=== PATIENT | female | born 2000 | race Caucasian/White ===

== ENCOUNTER 2025-03-10 09:38 | Outpatient (CLI) | payer BC, MEDICAID, SELFPAY ==
--- NOTE | 2025-03-10 09:47 | CTR_ITS ---
PROCEDURE INFORMATION: Exam: CT Temporal Bones Without Contrast. Exam date and time: 03/10/2025 10:24 AM Age: 25 years old Clinical indication: Hearing loss; RT ear mass x 1 month ago. Difficulty hearing and drainage; Additional info: Otorrhea, right/mass TECHNIQUE: Imaging protocol: Computed tomography of the temporal bones without contrast. Radiation optimization: All CT scans at this facility use at least one of these dose optimization techniques: automated exposure control; mA and/or kV adjustment per patient size (includes targeted exams where dose is matched to clinical indication); or iterative reconstruction. COMPARISON: No relevant prior studies available. RADIATION DOSE METRICS: Total DLP (mGy-cm): 381.99 FINDINGS: RIGHT TEMPORAL BONE: Smooth crescentic soft tissue within the deep portion of the external auditory canal, lateral to and abutting the posterior margin of the tympanic membrane, is nonspecific but could relate to inflammatory soft tissue thickening. It does not have the appearance of the discrete mass. Deep to the tympanic membrane, there is a small focus of soft tissue attenuation in Prussak space, without obvious erosion of the scutum or middle ear ossicles. Trace soft tissue thickening may be present in the facial recess. The remainder of the right middle ear cavity is well aerated, including the oval window, round window, sinus tympani, and at. Temporal bone air cells and mastoid sinus air cells are well-aerated. No significant abnormality of the bony labyrinth is identified. Tegmen tympani is intact. LEFT TEMPORAL BONE: Left middle ear cavity, including oval window, round window, sinus tympani, and facial recess, are well-aerated. Middle ear ossicles appear intact and no obvious bone destruction is seen. Temporal bone air cells and mastoid sinus air cells are well-aerated. No significant abnormality of the bony labyrinth is identified. Tegmen tympani is intact. OTHER: Very small mucous retention cysts are seen inferiorly within the maxillary sinuses. Nasal septum is deviated towards the right. CT/CT temporal bone wo con* [id number] IMPRESSION: 1. Very mild localized soft tissue thickening posteroinferior right external auditory canal, abutting the tympanic membrane. Minimal soft tissue attenuation within Prussak space, without bone destruction. 2. Unremarkable CT scan of the left temporal bone.
== END 2025-03-10 09:39 | disposition home or self-care (01) ==
LOC: RAD 09:43
PROVIDERS: PCP Internal Medicine; Visit Provider Nurse Practitioner Family
DX: H92.11 Otorrhea, right ear (principal)
CPT/HCPCS: 70480